=== PATIENT | male | born 1995 | race Caucasian/White ===

== ENCOUNTER 2019-05-15 21:14 | Emergency (ER) | payer OTHER ==
[~2019-05-15] VITALS: Ht 175.3 cm; Wt 77.3 kg
[2019-05-15 21:15] VITALS: BP 133/80
[2019-05-16] MEDS ORDERED: KETO10TAB PO (01:19)
[2019-05-16] MEDS ORDERED: KETOROLAC TROMETHAMINE 10 MG TAB PO ONE (01:30)
--- NOTE | 2019-05-16 06:07 | REP ---
Clinical: Left shoulder injury . Technique: Internal rotation, external rotation, and Y view left shoulder . Findings: No acute fracture or dislocation. The acromioclavicular and glenohumeral joints are intact. No periarticular calcifications or degenerative changes are appreciated. Sub acromial space is normal. Surrounding soft tissues are unremarkable. Impression: Normal left shoulder radiographs. Electronically Signed by Esa Maya MD 05/16/2019 05:59 A
== END 2019-05-16 01:48 | disposition home or self-care (01) ==
LOC: M ED 21:14
DX: S43.402A Unspecified sprain of left shoulder joint, initial encounter (principal); V00.211A Fall from ice-skates, initial encounter; Y92.89 Other specified places as the place of occurrence of the external cause; Y93.21 Activity, ice skating; Y99.8 Other external cause status